=== PATIENT | female | born 1975 | race Caucasian/White ===

== ENCOUNTER 2025-05-24 10:50 | Day surgery (SDC) | payer MEDICAID ==
[2025-05-24] MEDS: Lactated Ringers 1,000 ML IV SCH (11:03)
[2025-05-24] MEDS ORDERED: Propofol 200 MG/20 ML SDV ONE ×2 (11:09→12:27)
[2025-05-24] MEDS ORDERED: fentaNYL 100 MCG/2 ML SDV ONE (11:09)
== END 2025-05-24 13:45 | disposition home or self-care (01) ==
LOC: VM.SDS 10:50
PROVIDERS: ATTEND Surgery
DX: Z12.11 Encounter for screening for malignant neoplasm of colon (principal); D12.6 Benign neoplasm of colon, unspecified; K29.50 Unspecified chronic gastritis without bleeding; K63.5 Polyp of colon; R13.10 Dysphagia, unspecified; R19.5 Other fecal abnormalities; Z88.8 Allergy status to other drugs, medicaments and biological substances; Z88.5 Allergy status to narcotic agent; Z79.899 Other long term (current) drug therapy
CPT/HCPCS: 00813; J2704; J3010; J7120